=== PATIENT | female | born 1990 | race African-American/Black ===

== ENCOUNTER 2017-12-27 16:14 | Emergency (ER) | payer MEDICAID, MEDICARE ==
[~2017-12-27] VITALS: Ht 157.5 cm; Wt 107.0 kg
[2017-12-27 22:51] LABS: CLARITY URINE CLEAR (CLEAR); COLOR URINE YELLOW (YELLOW); KETONES URINE 1+ (NEGATIVE); LEUKOCYTE ESTERASE URINE NEGATIVE (NEGATIVE); NITRITE URINE NEGATIVE (NEGATIVE); OCCULT BLOOD URINE TRACE (NEGATIVE); PH URINE 5.5 (4.5-8.0); PROTEIN URINE NEGATIVE (NEGATIVE); SPECIFIC GRAVITY URINE 1.027 (1.005-1.030); UROBILINOGEN URINE 0.2 E.U./dL (0.2-1.0)
[2017-12-27] MEDS ORDERED: KETOROLAC 60MG/2ML VIAL IM ONE (23:00)
[2017-12-27 23:38] VITALS: BP 144/65
== END 2017-12-27 23:46 | disposition home or self-care (01) ==
LOC: ER 17:50
DX: M54.5 Low back pain (principal); E66.9 Obesity, unspecified; Z68.41 Body mass index [BMI] 40.0-44.9, adult
CPT/HCPCS: 81003; 81025; 96372; 99283; J1885